=== PATIENT | female | born 1960 | race Caucasian/White ===

== ENCOUNTER 2020-04-01 21:42 | Inpatient (IN) | payer MEDICAID ==
[~2020-04-01] VITALS: Ht 152.4 cm; Wt 63.5 kg
[2020-04-01 22:46] LABS: BASOPHILS % 0.9 % (0.0-2.0); EOSINOPHILS % 2.3 % (0.0-5.0); HEMATOCRIT. 40.5 % (36.0-48.0); HEMOGLOBIN. 13.4 g/dL (12.0-16.0); LYMPHOCYTES % 56.8 % (20.0-50.0); MEAN CORPUSCULAR VOLUME 84.8 fL (81.0-99.0); MEAN PLATELET VOLUME 9.8 fl (7.4-10.4); PLATELET 191 x1000/uL (130-400); RED BLOOD CELL COUNT 4.78 mill/uL (4.2-5.4); RED CELL DISTRIBUTION WIDTH 13.3 % (11.6-14.6)
[2020-04-01 22:53] LABS: CHLORIDE 106 mEq/L (98-107)
[2020-04-01 23:45] LABS: CLARITY URINE CLEAR (CLEAR); COLOR URINE YELLOW (YELLOW); KETONES URINE NEGATIVE (NEGATIVE); LEUKOCYTE ESTERASE URINE NEGATIVE (NEGATIVE); NITRITE URINE NEGATIVE (NEGATIVE); OCCULT BLOOD URINE NEGATIVE (NEGATIVE); PROTEIN URINE NEGATIVE (NEGATIVE); SPECIFIC GRAVITY URINE 1.008 (1.005-1.030); UROBILINOGEN URINE 0.2 E.U./dL (0.2-1.0)
[2020-04-01 23:57] LABS: *AMPHETAMINES SCREEN URINE NEGATIVE (NEGATIVE); *BARBITURATES SCREEN URINE NEGATIVE (NEGATIVE); *COCAINE SCREEN URINE NEGATIVE (NEGATIVE); METHADONE URINE SCREEN NEGATIVE (NEGATIVE); OPIATES URINE SCREEN NEGATIVE (NEGATIVE)
[2020-04-01 23:58] LABS: *BENZODIAZEPINES SCREEN URINE NEGATIVE (NEGATIVE); CANNABINOID URINE SCREEN NEGATIVE (NEGATIVE); PHENCYCLIDINE URINE SCREEN NEGATIVE (NEGATIVE)
[2020-04-02] MEDS ORDERED: ACETAMINOPHEN 325MG TABLET PO PRN ×2 (02:15)
[2020-04-02] MEDS ORDERED: CLONIDINE 0.1MG TABLET PO PRN (02:15)
[2020-04-02] MEDS ORDERED: ONDANSETRON HCL 4MG/2ML INJ IV PRN (02:15)
[2020-04-02] MEDS ORDERED: DIPHENHYDRAMINE 50MG/ML VIAL IV PRN (02:15)
[2020-04-02] MEDS ORDERED: MAGNESIUM/ALUMINUM HYDROXIDE/SIMETHICONE 30ML UDC PO PRN (02:15)
[2020-04-02] MEDS: SODIUM CHLORIDE 0.9% 1,000 ML IV SCH ×3 (02:30→22:30)
[2020-04-02 05:23] LABS: BASOPHILS % 0.7 % (0.0-2.0); EOSINOPHILS % 2.5 % (0.0-5.0); HEMATOCRIT. 36.6 % (36.0-48.0); HEMOGLOBIN. 12.3 g/dL (12.0-16.0); LYMPHOCYTES % 56.5 % (20.0-50.0); MEAN CORPUSCULAR HEMOGLOBIN 28.3 pg (28.0-32.0); MEAN CORPUSCULAR VOLUME 84.4 fL (81.0-99.0); MEAN PLATELET VOLUME 9.5 fl (7.4-10.4); MONOCYTES % 5.7 % (2.0-8.0); NEUTROPHILS % 34.6 % (40.0-76.0); PLATELET 175 x1000/uL (130-400); RED BLOOD CELL COUNT 4.34 mill/uL (4.2-5.4); RED CELL DISTRIBUTION WIDTH 13.2 % (11.6-14.6)
[2020-04-02 05:29] LABS: CHLORIDE 109 mEq/L (98-107)
[2020-04-02 08:30] VITALS: BP 153/87
[2020-04-02] MEDS ORDERED: AMLODIPINE 5MG TABLET PO SCH (09:00)
[2020-04-02 09:30] VITALS: BP 153/87
[2020-04-02] MEDS: LOSARTAN POTASSIUM 25 MG TABLET PO SCH (09:35)
[2020-04-02 12:00] VITALS: BP 137/76
[2020-04-02] MEDS: LIDOCAINE 5% PATCH TOP SCH (15:28)
[2020-04-02 16:00] VITALS: BP 141/89
[2020-04-02 20:00] VITALS: BP 130/81
[2020-04-03] VITALS: BP 113/67
[2020-04-03 04:00] VITALS: BP 133/80
[2020-04-03 08:00] VITALS: BP 131/79
[2020-04-03] MEDS: SODIUM CHLORIDE 0.9% 1,000 ML IV SCH (09:12)
[2020-04-03] MEDS: LOSARTAN POTASSIUM 25 MG TABLET PO SCH (09:13)
[2020-04-03] MEDS: LIDOCAINE 5% PATCH TOP SCH (09:16)
[2020-04-03 12:00] VITALS: BP 135/85
[2020-04-03 16:07] VITALS: BP 124/75
[2020-04-03 16:41] VITALS: BP 124/75
[2020-04-03] MEDS ORDERED: PNEUMOCOCCAL 23-VAL P-SAC VAC 0.5 ML IM ONE (18:00)
[2020-04-03] MEDS ORDERED: INFLUENZA VACCINE 05/PF 0.5 ML VIAL IM ONE (18:00)
== END 2020-04-03 17:40 | disposition home or self-care (01) | DRG 48 ==
LOC: ER 21:42 → MICUSO 04-02 00:44 → 8WST 04-02 08:25
PROVIDERS: ADMIT Internal Medicine; ATTEND Internal Medicine
DX: G90.8 Other disorders of autonomic nervous system (principal); M94.0 Chondrocostal junction syndrome [Tietze]; F41.9 Anxiety disorder, unspecified; M19.90 Unspecified osteoarthritis, unspecified site; E78.5 Hyperlipidemia, unspecified; E78.00 Pure hypercholesterolemia, unspecified; R00.1 Bradycardia, unspecified; Z20.822 Contact with and (suspected) exposure to COVID-19; I11.0 Hypertensive heart disease with heart failure; I50.32 Chronic diastolic (congestive) heart failure; R73.03 Prediabetes; Z88.0 Allergy status to penicillin
CPT/HCPCS: 36415; 71045; 80048; 80053; 80061; 80305; 80320; 81003; 83036; 83605; 83880; 84443; 84484; 85025; 86850; 86900; 87426; 90686; 90732; 93005; 93306; 93970; 99285; G0480

== ENCOUNTER 2021-09-28 19:31 | Emergency (ER) | payer MEDICAID, OTHER ==
[~2021-09-28] VITALS: Ht 152.4 cm; Wt 66.0 kg
[2021-09-28] MEDS ORDERED: KETOROLAC 60MG/2ML VIAL IM ONE (22:45)
[2021-09-29 00:05] VITALS: BP 133/74
== END 2021-09-29 01:05 | disposition home or self-care (01) ==
LOC: ER 19:31
DX: M79.652 Pain in left thigh (principal); F41.9 Anxiety disorder, unspecified; M19.90 Unspecified osteoarthritis, unspecified site; E11.9 Type 2 diabetes mellitus without complications; E78.00 Pure hypercholesterolemia, unspecified; I10 Essential (primary) hypertension; Z88.0 Allergy status to penicillin
CPT/HCPCS: 73552; 96372; 99283; J1885